=== PATIENT | female | born 1985 | race Caucasian/White ===

== ENCOUNTER 2020-12-15 14:25 | Outpatient (RCR) | payer OTHER, SELFPAY ==
--- NOTE | 2020-12-15 16:42 | PCPTNOTE ---
PHYSICAL THERAPY MOBILITY EVALUATION Patient:Maria R Atwood Date of :1985 Maria R participated in a power mobility seating evaluation. On the power mobility evaluation form provides recommendations and justifications for Maria R at this time. We will not be working with Maria R in physical therapy beyond this evaluation and a plan of care will not be developed. Thank you for referring this patient to [facility]. Please review, sign, date and return this discharge summary AYAAN. I have been updated about the patient's current status and I agree with discharge from the above service at this time. Referring Physician Date
== END 2021-01-03 15:07 | disposition home or self-care (01) ==
LOC: ANHPT 14:25
DX: L40.50 Arthropathic psoriasis, unspecified (principal); M25.561 Pain in right knee; E66.01 Morbid (severe) obesity due to excess calories; Z68.43 Body mass index [BMI] 50.0-59.9, adult
CPT/HCPCS: 97163

== ENCOUNTER 2021-09-19 09:10 | Outpatient (CLI) | payer OTHER, SELFPAY ==
--- NOTE | 2021-09-19 11:00 | NEURO_ITS ---
Impression: # Complains of numbness of hands. # Right Carpal Tunnel Syndrome. # No ulnar neuropathy. # Normal needle/EMG exam. Nerve Conduction Studies Anti Sensory Summary Table Stim Site NR Peak (ms) P-T Amp (?V) Site1 Site2 Delta-P (ms) Dist (cm) (m/s) Left Median Anti Sensory (2-3nd Digit) Wrist 3.2 58.8 Wrist 2-3nd Digit 3.2 14.0 44 Wrist 3.3 51.3 Wrist 2-3nd Digit 3.2 14.0 44 Right Median Anti Sensory (2-3nd Digit) Wrist 3.4 7.4 Wrist 2-3nd Digit 3.4 14.0 41 Wrist 3.4 13.8 Wrist 2-3nd Digit 3.4 14.0 41 Left Radial Anti Sensory (Base 1st Digit) Wrist 1.9 32.2 Wrist Base 1st Digit 1.9 0.0 Right Radial Anti Sensory (Base 1st Digit) Wrist 1.9 20.3 Wrist Base 1st Digit 1.9 0.0 Left Ulnar Anti Sensory (5th Digit) Wrist 2.2 55.6 Wrist 5th Digit 2.2 14.0 64 Right Ulnar Anti Sensory (5th Digit) Wrist 2.1 76.2 Wrist 5th Digit 2.1 14.0 67 Motor Summary Table Stim Site NR Onset (ms) O-P Amp (mV) Site1 Site2 Delta-0 (ms) Dist (cm) (m/s) Left Median Motor (Abd Poll Brev) Wrist 3.8 3.0 Elbow Wrist 4.5 26.0 58 Elbow 8.3 2.8 Right Median Motor (Abd Poll Brev) Wrist 3.6 1.9 Elbow Wrist 4.7 28.0 60 Elbow 8.3 1.3 Left Ulnar Motor (Abd Dig Minimi) Wrist 3.0 4.6 A Elbow Wrist 5.0 29.0 58 A Elbow 8.0 3.9 Right Ulnar Motor (Abd Dig Minimi) Wrist 2.3 5.8 A Elbow Wrist 5.0 30.0 60 A Elbow 7.3 4.0 F Wave Studies NR F-Lat (ms) L-R F-Lat (ms) Left Median (Mrkrs) (Abd Poll Brev) 26.31 1.27 Right Median (Mrkrs) (Abd Poll Brev) 27.58 1.27 Left Ulnar (Mrkrs) (Abd Dig Min) 26.70 0.07 Right Ulnar (Mrkrs) (Abd Dig Min) 26.78 0.07 EMG Side Muscle Nerve Root Ins Act Fibs Amp Dur Recrt Comment Right 1stDorInt Ulnar C8-T1 Nml Nml Nml Nml Nml Right Ext Indicis Radial (Post Int) C7-8 Nml Nml Nml Nml Nml Right Ext Digitorum Radial (Post Int) C7-8 Nml Nml Nml Nml Nml Right BrachioRad Radial C5-6 Nml Nml Nml Nml Nml Right PronatorTeres Median C6-7 Nml Nml Nml Nml Nml Right Abd Poll Brev Median C8-T1 Nml Nml Nml Nml Nml Left 1stDorInt Ulnar C8-T1 Nml Nml Nml Nml Nml Left Ext Indicis Radial (Post Int) C7-8 Nml Nml Nml Nml Nml Left Ext Digitorum Radial (Post Int) C7-8 Nml Nml Nml Nml Nml Left BrachioRad Radial C5-6 Nml Nml Nml Nml Nml Left PronatorTeres Median C6-7 Nml Nml Nml Nml Nml Left Abd Poll Brev Median C8-T1 Nml Nml Nml Nml Nml Right Abd Poll Long Radial (Post Int) C7-8 Nml Nml Nml Nml Nml Left Abd Poll Long Radial (Post Int) C7-8 Nml Nml Nml Nml Nml MTDD
--- NOTE | 2021-09-19 11:44 | PCNEURO ---
Patient became distraught following her test and believed we judged her because she could not walk back to exam room and was not happy with the paperwork we provide for proof of testing for work. Tech and the Doctor tried to placate the patient but no success she was still upset.
== END 2021-09-19 09:11 | disposition home or self-care (01) ==
PROVIDERS: Visit Provider Orthopaedic Surgery Hand Surgery
DX: G56.01 Carpal tunnel syndrome, right upper limb (principal)
CPT/HCPCS: 95886; 95911